=== PATIENT | male | born 1985 | race Caucasian/White ===

== ENCOUNTER → 2018-02-06 00:16 | Outpatient (CLI) | payer BC, SELFPAY ==
--- NOTE | 2018-02-06 06:58 | DI.REPORT_ITS ---
SYMPTOM/DIAGNOSIS: ELEVATED LFT'S, R94.5 ABDOMEN ULTRASOUND: The visualized liver parenchyma is normal in appearance. There is no evidence of cholelithiasis or biliary dilatation. Pancreas is poorly visualized. Spleen may be mildly enlarged. Kidneys are unremarkable in appearance with no evidence of hydronephrosis, renal mass or nephrolithiasis. CONCLUSION: No evidence of cholelithiasis. Question mild splenomegaly.
== END ==
PROVIDERS: PCP Family Medicine; Visit Provider Family Medicine
DX: R94.5 Abnormal results of liver function studies (principal); R16.1 Splenomegaly, not elsewhere classified
CPT/HCPCS: 76700

== ENCOUNTER → 2018-02-12 12:43 | Outpatient (REF) | payer BC, SELFPAY ==
[2018-02-13 14:29] LABS: Chlamydia Result Negative; GC Result Negative; Specimen Description URINE
== END ==
LOC: LBN 12:43
PROVIDERS: PCP Family Medicine; Visit Provider Nurse Practitioner Gerontology
DX: R39.198 Other difficulties with micturition (principal); Z11.3 Encounter for screening for infections with a predominantly sexual mode of transmission
CPT/HCPCS: 87491; 87591

== ENCOUNTER 2018-10-09 08:07 | Day surgery (SDC) | payer BC, SELFPAY ==
--- NOTE | 2018-10-09 06:59 | HPE_ITS ---
Date of service: 10/09/18 Assessment and Plan (1) Hematochezia: Current visit: No Status: Acute A\\ Intermittent hematochezia P\\ Flexible sigmoidoscopy under MAC sedation with bx to rule out Colitis Risks, benefits and complications have been reviewed. Complications include but are not limited to bleeding, pain, perforation, missed small lesion/polyp, sore throat, aspiration and adverse reaction to the medications. Questions were entertained and answered to their satisfaction and they wished to proceed. No guarantees were given or implied. History of Present Illness Chief Complaint: hematochezia Narrative: Parminder is back to see me today to discuss a sigmoidoscopy. I saw him in January of last year with complaints of hematochezia and anal pruritis. I couldn't see any inflammation on exam. We discussed some changes in his habits, food intolerances and not wearing tight clothing. He used some OTC hemorrhoid cream but has not really improved much. When I saw him in January I discussed doing a sigmoidoscopy with bx to rule out colitis. He is here today to discuss that. He continues to have itching on al most a daily basis as well as intermittent hematochezia. Some days he fills the toilet with blood. No blood clots though. No diarrhea. No family history of colon cancer or colitis. He also has questions regarding some swelling in his left lower extremity. He noticed it about 1 year after his achillis tendon repair. He notices dilated veins after standing for long periods of time. No changes in his health since he was last seen Review of Systems Constitutional Denies fever(s) Cardiovascular Denies chest pain, Denies chest pain at rest, Denies palpitations, Denies dyspnea and Denies dyspnea on exertion Respiratory Denies dyspnea and Denies dyspnea on exertion Endocrine Denies palpitations [facility] Medical History Hematochezia (Acute) Anal pruritus (Acute) Other difficulties with micturition (Acute 12/25/17) Migraine without status migrainosus, not intractable (Acute 08/31/15) Low HDL (under 40) (Acute 01/08/18) Infectious mononucleosis (Acute 05/17/99) Elevated liver function tests (Acute 01/08/18) Acute lateral meniscal tear (Acute) Surgical History S/P Achilles tendon repair (Acute) History of esophagogastroduodenoscopy (EGD) (Chronic) Arthroplasty of knee Social History Smoking/Tobacco Use Status: Never Alcohol Intake: current Substance use type: does not use Do you feel safe at home: Yes Do you feel safe in your relationship?: Yes Meds Home Medications Medication Instructions Recorded Confirmed Type zinc gluconate 50 mg PO DAILY 02/12/18 10/09/18 History cholecalciferol (vitamin D3) 1,000 1,000 unit PO DAILY 08/28/18 10/09/18 History unit capsule biotin 5 mg PO DAILY 10/07/18 10/09/18 History Allergies Allergy/AdvReac Type Severity Reaction Status Date / Time No Known Allergies Allergy Unverified 08/28/18 08:43 Exam HENMT Head: normal to inspection, normocephalic and atraumatic Resp Effort & Inspection: normal respiratory effort Auscultation: clear to auscultation bilaterally Cardio Rate: regular rate Rhythm: regular rhythm Heart Sounds: no gallops, no murmurs and no rubs
--- NOTE | 2018-10-09 07:05 | ENDO_ITS ---
Date of service: 10/09/18 Time of Service: 11:00 Endoscopy Report DATE OF PROCEDURE: 10/09/18 PRE-OP DIAGNOSIS: Intermittent Hematochezia POST-OP DIAGNOSIS: same PROCEDURE: Flexible Sigmoidoscopy with rectal biopsies SURGEON: Su Patel ANESTHESIA: other (general/ ASA 2/ Celestina Sheridan, DAVID) ESTIMATED BLOOD LOSS: 3 PATHOLOGY: other (Rectal biopsies) COMPLICATIONS: None DISPOSITION: same day INDICATIONS: Mr. Martins is a pleasant 33 year old male with a history of intermittent Hematochezia. Patient is here for flexible sigmoidoscopy to make sure he doesn't have proctitis. Risks, benefits and complications have been r eviewed. Complications include but are not limited to bleeding, pain, perforation, missed small lesion/polyp, sore throat, aspiration and adverse reaction to the medications. Questions were entertained and answered to their satisfaction and they wished to proceed. No guarantees were given or implied. PREP: Other (Enema) PROCEDURE START TIME: 11:00 PROCEDURE END TIME: 11:12 FINDINGS: Normal appearing rectum and sigmoid colon. PROCEDURE DESCRIPTION: After informed consent was obtained the patient was taken to the procedure room and placed in a left decubitous position. Monitors were applied and a time out was done. The patients name, date of , procedure, allergies to medications and metal in their body was reviewed. The patient was then sedated. Once sedated and comfortable a rectal exam was done. External exam was normal. Internal exam revealed a normal sphincter tone and no palpable masses. The prostate was normal. The scope was then introduced and retro-flexed. No internal hemorrhoids were identified. The scope was then advanced to the splenic flexure without difficulty. The prep was good. The scope was then slowly retracted over 12 minutes back into the rectum. Biopsies were done of the rectum. No ulcerations or polyps were identified. The scope was removed and the patient was woken up and taken back to Same day surgery in stable condition. The patient tolerated the procedure well and there were no immediate complications. Follow up: I will call with results of the biopsies
--- NOTE | 2018-10-09 07:05 | W.PM.DSUDISC ---
Discharge Plan Disposition Patient Disposition: HOME Condition: Good Discharge Details Reason For Visit: Hematochezia Attending Provider: Su Patel Primary Care Provider: Vladislav Mercado Home Meds and New Rx's Prescriptions: Continued cholecalciferol (vitamin D3) 1,000 unit capsule 1,000 unit PO DAILY RF: 0 zinc gluconate 50 MG tablet 50 mg PO DAILY RF: 0 biotin 5 mg Capsule 5 mg PO DAILY RF: 0 Discharge Instructions Instructions: Flexible Sigmoidoscopy (DC) Additional Instructions: Findings: Normal. Biopsies were done Follow up: I will call you with results. Please call if you develop: fevers >101.5 Nausea or Vomiting Abdominal pain that is not transient DAY SURGERY UNIT POST COLONOSCOPY INSTRUCTIONS 1. Because there will be medication in your system for the next 24 hours, you may feel a little sleepy. Your coordination will be affected. Therefore: a. Do not drive or operate dangerous equipment for 24 hours. b. Do not drink alcohol beverages for 24 hours (not even beer). c. Plan to go home and rest for the day. 2. Generally there are no restrictions on your activity after a day or so has gone by, but you may feel a bit fatigued for a few days. 3 After you arrive home you may have a light meal and return to a normal diet as you can tolerate it without feeling sick to your stomach. 4. After surgery, you may feel pain or discomfort. This should be only transient, but if it persists please contact your doctor. 5. If there are any questions regarding the findings of your procedure, please feel free to contact your doctor. 6. If you are unable to contact your doctor with a problem, contact the hospital at [phone]. 7. Continue all your regular medications unless directed otherwise. I understand the above instructions and have no questions. Signature of Patient or Responsible Adult Escort Date/Time Name of Responsible Adult Escort Signature of Nurse Date/Time Activity:: Activity as Tolerated Diet:: As Tolerated Discharge Orders Discharge Orders: Discharge Order (Routine); Ordered 10/09/18 Ordered By: Su Patel DS: Diagnosis Discharge Diagnosis (1) Hematochezia: Status: Acute (2) H/O flexible sigmoidoscopy: Status: Acute
[2018-10-09 08:52] VITALS: BP 118/75; PULSE 50; RESP 18; TEMP 35.8; O2SAT 99
[2018-10-09 09:36] LABS: ALT 90 U/L (12-78); AST 36 U/L (15-37); Albumin 3.4 g/dL (3.4-5.0); Alkaline Phosphatase 161 U/L (46-116); Bilirubin, Direct 0.27 mg/dL (0.00-0.20); Bilirubin, Total 2.2 mg/dL (0.2-1.0); Total Protein 5.8 g/dL (6.4-8.2)
[2018-10-09] MEDS: Lactated Ringers 1,000 ML 80 ML IV (10:33)
--- NOTE | 2018-10-09 11:10 | BOWEL_PTH ---
PATIENT: Parminder Martins I LOC: [facility] U#:[id number] AGE/SX: 33/M ROOM: RE10/09/[address]: Su Patel MD : [id number] BED: DIS: 10/09/2018 SPEC #: [id number] RECD: 10/09/18 12:49 STATUS: AYSE REQ #: [id number] NITIN: 10/09/18 11:[address]: Su Patel DEPT: Surgical Specimen RECD BY: Evita Minor ENTERED: 10/09/18 12:50 SP TYPE: Bowel OTHR DR: Vladislav Mercado MD Tissues: 1 - BIOPSY BOWEL Procedures: GROSS AND MICRO LEVEL 4 Comments: [id number]
[2018-10-09 11:40] VITALS: BP 119/69; PULSE 41; RESP 16; TEMP 36; O2SAT 99
== END 2018-10-09 12:10 | disposition home or self-care (01) ==
PROVIDERS: PCP Family Medicine; Visit Provider Surgery
PROC: 0DJD8ZZ Inspection of Lower Intestinal Tract, Via Natural or Artificial Opening Endoscopic (ICD-10-PCS; CPT 45330; principal; 2018-10-09 09:45)
DX: K92.1 Melena (principal); K62.89 Other specified diseases of anus and rectum
CPT/HCPCS: 45331; 36415; 80076; 88305; NC

== ENCOUNTER 2020-01-20 15:19 | Outpatient (REF) | payer BC, SELFPAY ==
[2020-01-20 21:00] LABS: ALT 100 U/L (16-63); AST 44 U/L (15-37); Albumin 3.4 g/dL (3.4-5.0); Alkaline Phosphatase 171 U/L (46-116); Calculated LDL 79 mg/dL (<100); Cholesterol 140 mg/dL (<200); HDL Cholesterol 40 mg/dL (40-60); Total Protein 5.9 g/dL (6.4-8.2); Triglyceride 106 mg/dL (<150)
[2020-01-20 21:05] LABS: Hemoglobin A1C 5.2 % (3.8-5.6)
== END 2020-01-20 15:39 ==
LOC: LBN 15:19
PROVIDERS: PCP Nurse Practitioner; Visit Provider Nurse Practitioner
DX: Z13.6 Encounter for screening for cardiovascular disorders (principal); Z13.1 Encounter for screening for diabetes mellitus; R94.5 Abnormal results of liver function studies
CPT/HCPCS: 80061; 80076; 83036

== ENCOUNTER 2021-03-02 02:26 | Outpatient (CLI) | payer SELFPAY ==
[2021-03-02 12:57] LABS: ALT 57 U/L (16-63); AST 29 U/L (15-37); Albumin 3.5 g/dL (3.4-5.0); Alkaline Phosphatase 183 U/L (46-116); Bilirubin, Direct 0.2 mg/dL (0.0-0.2); Total Protein 6.2 g/dL (6.4-8.2)
== END 2021-03-02 02:27 | disposition home or self-care (01) ==
PROVIDERS: PCP Nurse Practitioner; Visit Provider Nurse Practitioner
DX: K83.09 Other cholangitis (principal)
CPT/HCPCS: 36415; 80076

== ENCOUNTER 2021-05-30 12:15 | Outpatient (REF) | payer BC, SELFPAY ==
[2021-06-01 10:50] LABS: Appearance Normal; Container Type 50 mL Conical; Double Forms 1.5 %; Grade 3.5 (>=2.5); Motile/Ejaculate 257.4 x10(6) (>=9.0); Motile/mL 171.6 x10(6) (>=6.0); Motility 50 % (>=40); Semen Volume 1.5 mL (>=1.5); Sperm/mL 343.1 x10(6) (>=15.0); Strict Morph NL 4.5 % (>=4.0); Study Type Semen
== END 2021-05-30 12:16 | disposition home or self-care (01) ==
LOC: LBN 12:15
PROVIDERS: PCP Nurse Practitioner; Visit Provider Nurse Practitioner Gerontology
DX: N46.8 Other male infertility (principal)
CPT/HCPCS: 89240; 89310

== ENCOUNTER 2021-10-03 02:54 | Outpatient (CLI) | payer OTHER, BC, SELFPAY ==
[2021-10-03 16:22] LABS: ALT 93 U/L (16-63); AST 44 U/L (15-37); Albumin 3.4 g/dL (3.4-5.0); Alkaline Phosphatase 208 U/L (46-116); BUN 18 mg/dL (7-18); Bilirubin, Total 1.1 mg/dL (0.2-1.0); CREATININE 0.9 mg/dL (0.70-1.30); Calcium 7.8 mg/dL (8.5-10.1); Chloride 107 mmol/L (98-107); Glucose 102 mg/dL (74-106); Potassium 4.3 mmol/L (3.5-5.1); Sodium 139 mmol/L (136-145)
== END 2021-10-03 02:55 | disposition home or self-care (01) ==
LOC: LBO 02:54
PROVIDERS: PCP Nurse Practitioner; Visit Provider Nurse Practitioner
DX: K83.09 Other cholangitis (principal); R94.5 Abnormal results of liver function studies
CPT/HCPCS: 36415; 80053

== ENCOUNTER 2022-03-02 03:58 | Outpatient (CLI) | payer OTHER, SELFPAY ==
[2022-03-02 12:39] LABS: ALT 108 U/L (16-63); AST 52 U/L (15-37); Albumin 3.4 g/dL (3.4-5.0); Alkaline Phosphatase 184 U/L (46-116); Anion Gap 7.9 mmol/L (3-11); BUN 15 mg/dL (7-18); Bilirubin, Total 1.1 mg/dL (0.2-1.0); CO2 28.1 mmol/L (21.0-32.0); CREATININE 0.9 mg/dL (0.70-1.30); Calcium 8.4 mg/dL (8.5-10.1); Chloride 105 mmol/L (98-107); Estimated GFR 112.11 (mL/min/1.73m2); Glucose 84 mg/dL (74-106); Potassium 3.9 mmol/L (3.5-5.1); Sodium 141 mmol/L (136-145); Total Protein 6.5 g/dL (6.4-8.2)
== END 2022-03-02 03:59 | disposition home or self-care (01) ==
LOC: LOS 03:58
PROVIDERS: PCP Nurse Practitioner; Visit Provider Nurse Practitioner Family
DX: R94.5 Abnormal results of liver function studies (principal)
CPT/HCPCS: 36415; 80053

== ENCOUNTER 2024-07-23 16:11 | Outpatient (CLI) | payer MEDICAID, SELFPAY ==
[2024-07-23 13:58] LABS: Abs Immature Grans 0.03 10^3/uL (0.0-0.06); Absolute Basophil Count 0.03 10^3/uL (0.0-0.2); Absolute Eosinophil Count 0.12 10^3/uL (0.0-0.7); Absolute Lymphocyte Count 1.73 10^3/uL (1.2-3.4); Absolute Monocyte Count 0.74 10^3/uL (0.1-0.8); Absolute Neutrophil Count 3.13 10^3/uL (1.2-6.7); Basophils % 0.5 %; Eosinophils % 2.1 %; HCT 44.9 % (40.0-50.0); HGB 15.1 g/dL (13.5-17.5); Immature Grans % 0.5 %; Lymphocytes % 29.9 %; MCH 30.4 pg (27.0-33.0); MCHC 33.6 % (32.0-36.0); MCV 91 fL (80-95); MPV 8.3 fL (8.0-11.0); Monocytes % 12.8 %; Neutrophils % 54.2 %; Platelet Count 279 10^3/uL (130-400); RBC 4.96 10^6/uL (4.36-5.78); RDW 13.2 % (11.8-14.1); RDW-SD 43.6 fL; WBC 5.78 10^3/uL (4.4-10.8)
[2024-07-23 14:12] LABS: ALT 109 U/L (16-63); AST 36 U/L (15-37); Albumin 3.5 g/dL (3.4-5.0); Alkaline Phosphatase 187 U/L (46-116); Anion Gap 5.8 mmol/L (3-11); BUN 17 mg/dL (7-18); Bilirubin, Total 0.78 mg/dL (0.2-1.0); CO2 29.2 mmol/L (21.0-32.0); CREATININE 1.1 mg/dL (0.70-1.30); Calcium 8.4 mg/dL (8.5-10.1); Chloride 106 mmol/L (98-107); Estimated GFR 87.03 (mL/min/1.73m2); Glucose 100 mg/dL (74-106); Potassium 4.4 mmol/L (3.5-5.1); Sodium 141 mmol/L (136-145); Total Protein 6.8 g/dL (6.4-8.2)
== END 2024-07-23 16:12 | disposition home or self-care (01) ==
LOC: LBO 08-05 16:12
PROVIDERS: PCP Nurse Practitioner Family; Visit Provider Internal Medicine Gastroenterology
DX: K52.9 Noninfective gastroenteritis and colitis, unspecified (principal)
CPT/HCPCS: 36415; 80053; 85025